=== PATIENT | male | born 1965 | race Caucasian/White ===

== ENCOUNTER 2020-04-01 10:49 | Inpatient (IN) | payer SELFPAY ==
[2020-04-01] MEDS ORDERED: CLINDAMYCIN 900MG/D5W 900 MG/50 ML IVPB IV ONE (11:40)
[2020-04-01] MEDS ORDERED: NA CHLORIDE 0.9% 1,000 ML ONE ×3 (11:40→15:38)
[2020-04-01 12:19] LABS: Absolute Lymphocytes (CBC) 1.1 K/uL (0.7-4.9); Basophils % 0.6 % (0-1.3); Hematocrit 43.6 % (39.6-49.0); Lymphocytes % 10.4 % (15.3-44.8); MPV 8.6 fL (7.6-11.3); RBC Red Blood Cell Count 4.55 M/uL (4.33-5.43)
[2020-04-01] MEDS ORDERED: ONDANSETRON 4 MG/2 ML VIAL ONE (12:30)
[2020-04-01] MEDS ORDERED: MORPHINE 4 MG/ML SYR ONE ×2 (12:30→13:51)
[2020-04-01 12:34] LABS: ALT/SGPT 22 U/L (12-78); AST/SGOT 13 U/L (15-37); Albumin 2.4 g/dL (3.4-5.0); Alkaline Phosphatase 112 U/L (45-117); BUN Blood Urea Nitrogen 17 mg/dL (7-18); Bicarbonate 27 mmol/L (21-32); Bilirubin Total 0.3 mg/dL (0.2-1.0); Potassium 4.7 mmol/L (3.5-5.1); Protein, Total 6.6 g/dL (6.4-8.2); Sodium Level 130 mmol/L (136-145)
[2020-04-01 12:36] LABS: Glucose Level 528 mg/dL (74-106)
[2020-04-01] MEDS ORDERED: INSULIN -REGULAR HUMAN 50 UNIT/0.5 ML ML ONE (13:02)
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
--- NOTE | 2020-04-01 13:17 | ER ---
Nurse's Notes [facility] Name: Henri Cool Age: 54 yrs Sex: Male : 1965 Arrival Date: 04/01/2020 Time: 10:52 Bed 5 Private MD: Diagnosis: Left arm cellulitis;Hyperglycemia Presentation: 04/01 10:59 Chief complaint: Patient states: Left hand redness, swelling, hot for 3 days. ll1 Coronavirus screen: Client denies travel out of the [place] in the last 14 days. At this time, the client does not indicate any symptoms associated with coronavirus-19. Ebola Screen: Patient denies travel to an Ebola-affected area in the 21 days before illness onset. Initial Sepsis Screen: Does the patient meet any 2 criteria? No. Patient's initial sepsis screen is negative. Does the patient have a suspected source of infection? Yes: Skin breakdown/wound. Risk Assessment: Do you want to hurt yourself or someone else? Patient reports no desire to harm self or others. Onset of symptoms was March 30, 2020. 10:59 Method Of Arrival: Ambulatory [facility] 10:59 Acuity: ANNA 2 ll1 Historical: - Allergies: 11:01 No Known Allergies; ll1 - PMHx: 11:01 Diabetes - IDDM; ll1 - PSHx: 11:01 neck sx, elbow sx, hip/leg sx; ll1 - Immunization history:: Flu vaccine is up to date. - Social history:: Smoking status: Patient denies any tobacco usage or history of. Screenin:40 Abuse screen: Denies threats or abuse. Nutritional screening: No deficits noted. vg1 Tuberculosis screening: No symptoms or risk factors identified. Fall Risk Total Wilkins Fall Scale indicates No Risk (0-24 pts). Assessment: 11:40 General: Appears in no apparent distress. well groomed, Behavior is anxious. Pain: vg1 Complains of pain in left hand. Neuro: Level of Consciousness is awake, alert, obeys commands, Oriented to person, place, time, situation. Cardiovascular: Patient's skin is warm and dry. Respiratory: Airway is patent Respiratory effort is even, unlabored, Respiratory pattern is regular, symmetrical. GI: No signs and/or symptoms were reported involving the gastrointestinal system. : No signs and/or symptoms were reported regarding the genitourinary system. EENT: No signs and/or symptoms were reported regarding the EENT system. Derm: Skin is pink, warm \T\ dry. Left hand redness and swelling, and warm to touch. Musculoskeletal: No signs and/or symptoms reported regarding the musculoskeletal system. 12:20 Reassessment: Patient in bed laying down. States is feeling anxious/nervous. Light vg1 turned off, bed low, call light at side. 13:27 Reassessment: Patient and/or family updated on plan of care and expected duration. Pain vg1 level reassessed. Patient is alert, oriented x 3, equal unlabored respirations, skin warm/dry/pink. Patient states pain level is 8/10. Laying down in bed resting, call light at side, family at bedside. 13:41 Reassessment: Pt c/o pain 8/10. Dr. Lockett notified, repeat morphine administered as hb ordered. VSS. Admission ordered, awaiting room assignment at this time. remains at bedside. 14:21 Reassessment: Patient appears in no apparent distress at this time. No changes from vg1 previously documented assessment. Patient and/or family updated on plan of care and expected duration. Pain level reassessed. Patient is alert, oriented x 3, equal unlabored respirations, skin warm/dry/pink. Patient states pain is still 8/10. Patient taken to Med/Surg via wheelchair by Ellen Barriga. Vital Signs: 10:59 BP 132 / 81; Pulse 89; Resp 17; Temp 98.2; Pulse Ox 100% ; Weight 65.77 kg; Height 5 ll1 ft. 5 in. (165.10 cm); Pain 10/10; 11:45 BP 122 / 84; Pulse 84; Resp 16; Pulse Ox 98% on R/A; Pain 10/10; vg1 12:15 BP 123 / 87; Pulse 78; Resp 14; Pulse Ox 100% on R/A; Pain 10/10; vg1 12:30 BP 120 / 83; Pulse 82; Resp 12; Pulse Ox 99% on R/A; vg1 13:39 BP 126 / 90; Pulse 74; Resp 12; Pulse Ox 100% on R/A; Pain 8/10; vg1 13:45 BP 135 / 89; Pulse 76; Resp 12; Pulse Ox 100% on R/A; Pain 8/10; vg1 14:00 BP 111 / 89; Pulse 74; Resp 14; Pulse Ox 98% on R/A; Pain 8/10; vg1 10:59 Body Mass Index 24.13 (65.77 kg, 165.10 cm) ll1 ED Course: 10:52 Patient arrived in ED. mr 10:52 Min Lockett MD is Attending Physician. ps1 11:01 Triage completed. ll1 11:02 Arm band placed on Patient placed in an exam room, on a stretcher. ll1 11:24 Chichi Abdullahi, RN is Primary Nurse. hb 11:25 Brittney Angeles, RN is Primary Nurse. vg1 11:38 Radiology exam delayed due to IV insertion attempt and/or patient not having bq appropriate IV at this time. 11:43 Inserted saline lock: 20 gauge in right antecubital area, using aseptic technique. vg1 Blood collected. 12:32 Patient has correct armband on for positive identification. Bed in low position. Call vg1 light in reach. Adult w/ patient. Pulse ox on. NIBP on. Door closed. Pillow given. 12:35 Procalcitonin Sent. vg1 12:35 Blood Culture Adult (2) Sent. vg1 12:35 CMP Sent. vg1 12:36 Hemoglobin A1c Sent. vg1 12:46 Patient moved to [place] via wheelchair. vg1 12:59 Forearm Left W Con In Process Unspecified. EDMS 13:10 Forearm Left W Con In Process Unspecified. EDMS 13:10 Patient moved back from [place]. vg1 13:16 Otto Ivey MD is Hospitalizing Provider. ps1 14:09 No provider procedures requiring assistance completed. Patient admitted, IV remains in sv place. intact. Administered Medications: 12:12 Drug: NS 0.9% (30 ml/kg) 30 ml/kg Route: IV; Rate: bolus; Site: right antecubital; vg1 13:30 Follow up: Response: No adverse reaction vg1 12:25 Drug: Clindamycin 900 mg Route: IVPB; Infused Over: 30 mins; Site: right antecubital; vg1 13:00 Follow up: IV Status: Completed infusion; IV Intake: 50ml vg1 13:31 Follow up: Response: No adverse reaction vg1 12:25 Drug: morphine 4 mg {Note: RASS 1.} Route: IVP; Site: right antecubital; vg1 13:30 Follow up: Response: No adverse reaction; RASS: Alert and Calm (0) vg1 12:25 Drug: Zofran (Ondansetron) 4 mg Route: IVP; Site: right antecubital; vg1 13:30 Follow up: Response: No adverse reaction; Nausea is decreased vg1 13:15 Drug: Insulin Regular Human 10 units {Co-Signature: hb (Chichi Abdullahi RN).} Route: vg1 Sub-Q; Site: left upper arm; 13:41 Drug: morphine 4 mg Route: IVP; Site: right antecubital; hb 14:21 Follow up: Response: No adverse reaction vg1 Intake: 13:00 IV: 50ml; Total: 50ml. vg1 Outcome: 13:17 Decision to Hospitalize by Provider. ps1 14:09 Admitted to Med/surg room 208, with chart, Report called to Carmenza MAHMOOD sv 14:09 Condition: stable 14:09 Instructed on the need for admit. 14:15 Patient left the ED. sv Signatures: Dispatcher [employer] EDMS Ashley Bhatti RN ELA sv Jim, Larissa mr Aarondwayne, Chichi Camacho RN RN hb Min Lockett MD MD ps1 Brittney Angeles RN RN vg1 Ai Green RN RN ll1 Chichi Abdullahi RN hb
[2020-04-01] MEDS ORDERED: ONDANSETRON 4 MG/2 ML VIAL IV PRN (13:18)
[2020-04-01] MEDS ORDERED: ACETAMINOPHEN 500 MG TAB PO PRN (13:18)
--- NOTE | 2020-04-01 13:21 | RAD REPORT ---
EXAM DESCRIPTION: CT - Forearm Left W Con - 04/01/2020 1:10 pm CLINICAL HISTORY: swellingpain of the hand, wrist and forearm, foreign body history COMPARISON: No comparisons TECHNIQUE: Axial 5 millimeter thick images were obtained of the hand, wrist and forearm of the left upper extremity. Imaging was obtained following administration of nonionic IV contrast. Sagittal and coronal reformatted images were generated and reviewed. The CT scan was performed using dose optimization techniques as appropriate to a performed exam incl uding one or more of the following: Automated exposure control, adjustment of the mA and/or kV accord ing to patient size (this includes techniques or standardized protocols for targeted exams where dose is matched to indication/reason for exam) and use of iterative reconstruction technique. FINDINGS: There is no fracture or acute bone process identifiable. No lytic or destructive bone proc ess identifiable. No joint effusions are identifiable on the examination. No periarticular enhancemen t or abnormal periarticular soft tissue swelling seen. Skeletal musculature shows no intramuscular he matoma, mass or edema. No extravasation of contrast. No abscess or drainable fluid collection. There is no air in the soft t issues. No foreign body identifiable. Skin thickening and edema changes are present over the dorsum of the hand, wrist and distal forearm. There is edema and inflammatory stranding in the subcutaneous fatty tissues of the hand, wrist and fo rearm. This is primarily dorsum of the hand and wrist. IMPRESSION: Edematous/inflammatory stranding is seen in the subcutaneous fatty tissues of the hand, wrist and forearm. Findings are most pronounced at the dorsum of the hand and wrist. No air in the soft tissues, no drainable fluid collection and no foreign body is identifiable. No joint effusion or periarticular soft tissue edema or enhancement.
[2020-04-01 14:44] VITALS: BMI 24.1
[2020-04-01] MEDS: VANCOMYCIN/NS 1 gm 1 GM/250 ML BAG IVPB SCH (14:45)
[2020-04-01] MEDS: Levofloxacin 750mg IV 750 MG/150 ML BAG IV SCH (15:27)
[2020-04-01] MEDS: NA CHLORIDE 0.9% 1,000 ML IV SCH (15:28)
[2020-04-01] MEDS ORDERED: Levofloxacin 750mg IV 750 MG/150 ML BAG IV ONE (15:39)
--- NOTE | 2020-04-01 16:02 | P.HP ---
Certification for Inpatient Patient admitted to: Inpatient With expected LOS: >2 Midnights Patient will require the following post-hospital care: None Practitioner: I am a practitioner with admitting privileges, knowledge of patient current condition, hospital course, and medical plan of care. Services: Services provided to patient in accordance with Admission requirements found in Title 42 Section 412.3 of the Code of Federal Regulations Patient History Date of Service: 04/01/20 Reason for admission: Left digit and left hand cellulitis along with a left forearm cellulitis History of Present Illness: Patient is a 54-year-old gentleman who presents to the hospital with swelling of the left hand and forearm. He said he has been having a lot of tenderness and pain. He was helping his girlfriend with making the beds at a hotel, and he believes he may have scraped his hand on the wood frame of the bed. He has also has some insect bites at [place] as the mosquitos are really bad. [place] He also has poorly controlled diabetes. He is on Lantus twice daily and then he takes a short-acting before his meals. He has significant erythema and edema of the left fingers, hand, and forearm. He has a lot of tenderness as well. At this time, he will be admitted to the hospital for further evaluation. Spoke with hand surgery and they will see him in the morning as well. Allergies No Known Allergies Allergy (Verified 04/01/20 14:25) Home Medications: Insulin Glargine,Hum.rec.anlog [Lantus Solostar] 25 units SQ BID 04/01/20 Insulin Lispro [Humalog*] 10 units SQ TID 04/01/20 - Past Medical/Surgical History Has patient received pneumonia vaccine in the past: No Diabetic: Yes -: Diabetes- IDDM -: Neck Sx -: Right Hip Sx - Family History Mother Medical History: Diabetes - Social History Smoking Status: Never smoker Alcohol use: No CD- Drugs: No Caffeine use: Yes Place of Residence: Home Review of Systems 10-point ROS is otherwise unremarkable Physical Examination - Vital Signs Temperature: 98.2 F Blood Pressure: 126/90 Pulse: 74 Respirations: 12 Pulse Ox (%): 95 - Physical Exam General: Alert, In no apparent distress, Oriented x3 HEENT: Atraumatic, PERRLA, Mucous membr. moist/pink, EOMI, Sclerae nonicteric Neck: Supple, 2+ carotid pulse no bruit, No LAD, Without JVD or thyroid abnormality Respiratory: Clear to auscultation bilaterally, Normal air movement Cardiovascular: Regular rate/rhythm, Normal S1 S2, No murmurs Gastrointestinal: Normal bowel sounds, Soft and benign, Non-distended, No tenderness Musculoskeletal: Swelling, Erythema, Tenderness, Warmth, Other (Swelling extended from the fingers to the hands to the forearm) Integumentary: Tenderness/swelling, Erythema, Warmth Neurological: Normal gait, Normal speech, Normal tone, Sensation intact, Cranial nerves 3-12 intact, Normal affect, Abnormal strength (Left hand is abnormal; otherwise everything is unremarkable) Lymphatics: No axilla or inguinal lymphadenopathy - Studies Laboratory Data (last 24 hrs) 04/01/20 11:45: Sodium 130 L, Potassium 4.7, BUN 17, Creatinine 0.87, Glucose 528 H*, Total Bilirubin 0.3, AST 13 L, ALT 22, Alkaline Phosphatase 112 04/01/20 11:45: WBC 10.9, Hgb 14.3, Hct 43.6, Plt Count 251 Assessment & Plan - Problems (Diagnosis) (1) Cellulitis of multiple sites of left hand and fingers Current Visit: Yes Status: Acute (2) Cellulitis of left forearm Current Visit: Yes Status: Acute (3) Poorly controlled diabetes mellitus Current Visit: Yes Status: Acute - Plan 1. Continue with IV antibiotic 2. Monitor blood sugars closely 3. Hand surgery consultation; to see patient in the morning 4. Gentle IV hydration 5. Monitor CBC 6. Check hemoglobin A1c in the morning 7. Pain control 8. GI and DVT prophylaxis Discharge Plan: Home Plan to discharge in: Greater than 2 days - Advance Directives Does patient have a Living Will: No Does patient have a Durable POA for Healthcare: No - Code Status/Comfort Care Code Status Assessed: Yes Code Status: Full Code Critical Care: No Time Spent Managing PTS Care (In Minutes): 45
[2020-04-01] MEDS: HYDROMORPHONE HCL 1 MG/ML INJ IV PRN ×2 (16:32→21:23)
[2020-04-01] MEDS ORDERED: HYDROMORPHONE HCL 1 MG/ML INJ ONE (16:40)
[2020-04-01] MEDS ORDERED: D50W 25 GM/50 ML SYRINGE IV PRN (17:02)
[2020-04-01] MEDS ORDERED: GLUCAGON 1 MG/VIAL IM PRN (17:02)
[2020-04-01] MEDS ORDERED: INSULIN GLARGINE 100 UNITS/ML SQ ONE ×2 (17:25→18:00)
[2020-04-02] MEDS: VANCOMYCIN/NS 1 gm 1 GM/250 ML BAG IVPB SCH ×2 (01:27→14:11)
[2020-04-02] MEDS: HYDROMORPHONE HCL 1 MG/ML INJ IV PRN ×2 (01:32→05:07)
[2020-04-02] MEDS: NA CHLORIDE 0.9% 1,000 ML IV SCH ×2 (03:20→16:00)
[2020-04-02 06:18] LABS: Absolute Lymphocytes (CBC) 1.5 K/uL (0.7-4.9); Basophils % 0.4 % (0-1.3); Hematocrit 41.5 % (39.6-49.0); Lymphocytes % 9.9 % (15.3-44.8); MPV 7.9 fL (7.6-11.3); RBC Red Blood Cell Count 4.43 M/uL (4.33-5.43)
[2020-04-02 06:24] LABS: BUN Blood Urea Nitrogen 11 mg/dL (7-18); Bicarbonate 27 mmol/L (21-32); Glucose Level 194 mg/dL (74-106); Sodium Level 130 mmol/L (136-145)
[2020-04-02] MEDS ORDERED: TRAMADOL HCL 50 MG TAB PO PRN (07:29)
--- NOTE | 2020-04-02 07:31 | P.PN ---
Subjective Date of Service: 04/02/20 Primary Care Provider: From [place] Chief Complaint: Left digit and left hand cellulitis along with a left forearm cellulitis Subjective: Other (Pain better controlled.) Physical Examination - Vital Signs Temperature: 98.5 F Blood Pressure: 133/92 Pulse: 84 Respirations: 16 Pulse Ox (%): 97 - Physical Exam General: Alert, In no apparent distress, Oriented x3, Cooperative HEENT: Atraumatic Neck: Supple Respiratory: Clear to auscultation bilaterally, Normal air movement Cardiovascular: Normal pulses, Regular rate/rhythm Gastrointestinal: Normal bowel sounds, No masses, No rebound, No guarding Musculoskeletal: Other (Pain to the left hand noted) Integumentary: Other (Significant swelling to the left hand. Bullous formations noted to the dorsal aspect of the hand. Significant erythema noted to the hand and wrist region.) Neurological: Normal speech, Normal strength at 5/5 x4 extr, Normal tone, Other (Not able to completely flex fingers and wrists.) - Studies Laboratory Data (last 24 hrs) 04/01/20 11:45: Sodium 130 L, Potassium 4.7, BUN 17, Creatinine 0.87, Glucose 528 H*, Total Bilirubin 0.3, AST 13 L, ALT 22, Alkaline Phosphatase 112 04/01/20 11:45: WBC 10.9, Hgb 14.3, Hct 43.6, Plt Count 251 Medications List Reviewed: Yes Assessment & Plan Discharge Plan: Home Plan to discharge in: 72 Hours Physician Review Additional Text: Impression: Cellulitis of left hand, wrist and forearm Diabetes mellitus type 2 uncontrolled with hyperglycemia Plan: Cellulitis of left hand, wrist and forearm: Continue with vancomycin and levaquin IV. Patient is NPO. Await Dr. Magana's assessment. Diabetes mellitus type 2 uncontrolled with hyperglycemia: Continue with accuchecks. Will adjust Lantus. A1c was elevated. Needs better control. Time Spent Managing Pts Care (In Minutes): 55
[2020-04-02] MEDS: HYDROCODONE/APAP 7.5/325 MG TAB PO PRN ×2 (08:03→20:19)
[2020-04-02] MEDS ORDERED: HYDROCODONE/APAP 7.5/325 MG TAB ONE (08:13)
[2020-04-02] MEDS ORDERED: NS 0.9% VIAL 10 ML ONE (09:52)
[2020-04-02] MEDS ORDERED: LIDOCAINE 2% MPF 5 ML VIAL ONE ×2 (09:52→10:58)
[2020-04-02] MEDS ORDERED: ROPLVACAINE HCL 40 ML ONE (09:53)
[2020-04-02] MEDS ORDERED: MIDAZOLAM HCL 2 MG/2 ML INJ ONE (09:53)
[2020-04-02] MEDS ORDERED: FENTANYL CITR 100 MCG/2 ML ONE (09:53)
[2020-04-02] MEDS ORDERED: dexAMETHasone 4 MG/ML VIAL ONE (09:56)
[2020-04-02] MEDS ORDERED: NA CHLORIDE 0.9% 1,000 ML ONE (10:07)
[2020-04-02] MEDS ORDERED: propofoL 200 MG/20 ML VIAL IV ONE (10:16)
[2020-04-02] MEDS ORDERED: Levofloxacin 750mg IV 750 MG/150 ML BAG IV ONE (10:44)
[2020-04-02] MEDS ORDERED: CODEINE 30MG/APAP 300MG TAB PO PRN (11:42)
[2020-04-02] MEDS ORDERED: MEPERIDINE HCL 50 MG/ML IM PRN (11:43)
--- NOTE | 2020-04-02 12:30 | OP ---
Surgeon: Jarad Magana MD Preoperative Diagnosis: Infected left hand. Postoperative Diagnosis: Infected left hand. Procedure: Debridement of skin and subcu tissue, incision and drainage of abscess on the dorsum of the hand. Anesthesia: supraclavicular block. Description Of Procedure: Without satisfactory block, the left arm was prepped with Betadine scrub, Betadine paint, dry sterile drapes applied in usual manner. Arm was elevated. Tourniquet was inflated to 250 mmHg. Hand was placed on a roll lock table. The patient had 2 focal areas, 1 over the fourth fifth metacarpal and then 1 over the third metacarpal dorsally. A curvilinear incision was made over the fourth fifth metacarpal area and watery yellow white fluid was encountered. The tracts were opened extending all the way toward the metacarpal head of the little finger toward the wrist proximally. There was a bridge extending toward the thumb metacarpal. Another incision was made over the thumb metacarpal curvilinear and also the 2 wounds were communicated. A Shawna drain was placed between them. After debridement, forceps, scissors, and curetting. Then the wound was jet lavage irrigated with 3 L of dilute Betadine solution. Tourniquet was released. Electrocautery was used for hemostasis. Wound was packed with Betadine-soaked 2 inch Eddie, Kerlix and fluffs. The patient tolerated procedure well and returned to Recovery. SHIVA Voice ID: [id number] Report ID: [id number] MAYRA
[2020-04-02] MEDS: Levofloxacin 750mg IV 750 MG/150 ML BAG IV SCH (13:01)
[2020-04-02] MEDS: INSULIN -REGULAR HUMAN 50 UNIT/0.5 ML ML SQ SCH ×2 (15:59→20:19)
[2020-04-02] MEDS ORDERED: INSULIN GLARGINE 100 UNITS/ML SQ ONE (17:03)
[2020-04-02] MEDS ORDERED: INSULIN GLARGINE 100 UNITS/ML SQ SCH (21:00)
[2020-04-03] MEDS: NA CHLORIDE 0.9% 1,000 ML IV SCH ×3 (00:51→21:53)
[2020-04-03] MEDS: HYDROMORPHONE HCL 1 MG/ML INJ IV PRN (00:52)
[2020-04-03] MEDS: VANCOMYCIN/NS 1 gm 1 GM/250 ML BAG IVPB SCH (02:06)
[2020-04-03 04:31] LABS: Absolute Lymphocytes (CBC) 1.3 K/uL (0.7-4.9); Basophils % 0.3 % (0-1.3); Hematocrit 40.7 % (39.6-49.0); Lymphocytes % 9.3 % (15.3-44.8); MPV 8.5 fL (7.6-11.3); RBC Red Blood Cell Count 4.34 M/uL (4.33-5.43)
[2020-04-03 04:50] LABS: Magnesium 2.1 mg/dL (1.8-2.4); Potassium 4.5 mmol/L (3.5-5.1)
--- NOTE | 2020-04-03 07:28 | P.PN ---
Subjective Date of Service: 04/03/20 Primary Care Provider: From [place] Chief Complaint: Left digit and left hand cellulitis along with a left forearm cellulitis Subjective: Other (Patient had surgery yesterday. Pain improved.) Physical Examination - Vital Signs Temperature: 97.6 F Blood Pressure: 104/56 Pulse: 86 Respirations: 18 Pulse Ox (%): 97 - Physical Exam General: Alert, In no apparent distress, Oriented x3, Cooperative HEENT: Atraumatic Neck: Supple Respiratory: Clear to auscultation bilaterally, Normal air movement Cardiovascular: Normal pulses, Regular rate/rhythm Gastrointestinal: No guarding Integumentary: Other (Left hand bandaged. Less swelling noted to the fingers.) Neurological: Normal speech, Normal strength at 5/5 x4 extr, Normal tone, Normal affect - Studies Medications List Reviewed: Yes Assessment & Plan Discharge Plan: Home Plan to discharge in: Greater than 2 days Physician Review Additional Text: Impression: Cellulitis/abscess of left hand, wrist and forearm status post debridement/incision/drainage of abscess of the dorsum of the hand Diabetes mellitus type 2, insulin-dependent with hyperglycemia Hyponatremia Plan: Cellulitis/abscess of left hand, wrist and forearm status post debridement/incision/drainage of abscess of the dorsum of the hand: Patient had surgery yesterday. Debridement done. Packing in place. Continue IV vancomycin and Levaquin. Plastic surgery plans to take patient back to surgery again tomorrow. Will consult infectious disease to further evaluate and await recommendation. Blood, wound cultures obtained. Will provide medication for pain will continue to monitor closely. Anticipate discharge likely in the next 3-4 days. Will discuss further with plastic surgery. Diabetes mellitus type 2 insulin-dependent with hyperglycemia: A1c greater than 11. Will increase Lantus to 20 units subcu twice daily. Will increase sliding scale. Continue to get diabetes better controlled. Will continue to monitor and adjust medication appropriately. Hyponatremia: Continue IV fluids. Will monitor and adjust appropriately. Time Spent Managing Pts Care (In Minutes): 55
[2020-04-03] MEDS: INSULIN -REGULAR HUMAN 50 UNIT/0.5 ML ML SQ SCH ×4 (07:55→20:03)
[2020-04-03] MEDS: INSULIN GLARGINE 100 UNITS/ML SQ SCH ×2 (07:56→20:03)
[2020-04-03] MEDS ORDERED: INSULIN GLARGINE 100 UNITS/ML SQ SCH (09:00)
--- NOTE | 2020-04-03 09:46 | PN ---
The patient's dressing changed. The flaps are viable. The wound is clean. He is for surgery tomorr ow, n.p.o. after midnight, debridement and partial closure. AUSTIN/LINDSAY Voice ID: [id number] Report ID: [id number]
[2020-04-03] MEDS: HYDROCODONE/APAP 7.5/325 MG TAB PO PRN ×3 (11:48→21:57)
[2020-04-03] MEDS: VANCOMYCIN 1.25 GM in NA CHLORIDE 0.9% 250 ML IVPB SCH (13:00)
[2020-04-03] MEDS: Levofloxacin 750mg IV 750 MG/150 ML BAG IV SCH (13:00)
[2020-04-03] MEDS: HYDROMORPHONE HCL 0.5 MG/0.5 ML INJ IV PRN ×2 (15:15→20:04)
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
--- NOTE | 2020-04-03 19:49 | CON ---
History Of Present Illness: The patient is a 54-year-old male coming in with left hand infection and cellulitis. The patient was taken to the OR to open wounds. Infection was debrided. The patient i s currently on IV antibiotic. Does not recall what happened to his hand it could be insect bite vers us trauma as patient was doing some cleaning work at outside. Denies any other problems at this time . Has history of diabetes mellitus. Social History: Nonsmoker, nondrinker. Family History: Noncontributory. Past Medical History: As per HPI. Medications: Levaquin and vancomycin. See MAR for other medications. Allergies: NO KNOWN DRUG ALLERGIES. Review of Systems: A 10-point review was performed. Physical Examination: General: This is a 54-year-old male, lying in bed, family by the bedside, not in any acute cardiopul monary distress. Vital signs: Temperature 97.8, pulse 87, respiration 18, blood pressure 134/74. HEENT: Unremarkable. Neck: Supple. Lungs: Clear to auscultation. Heart: S1, S2. Regular. Abdomen: Soft, nontender. Bowel sounds present. Extremity: Left hand under surgical dressing. Laboratory Data: Shows WBC 14.2, hemoglobin 14, platelets are 300. Chemistry shows sodium 132, pota ssium 4.5, chloride 97, bicarb 28, BUN 27, creatinine 0.9, glucose is 485. Micro data; blood culture s are negative. Wound cultures growing Staph epi. Staph coag-negative. Assessment And Plan: Left hand injury with infected wound, possible staph infection currently being well covered with vancomycin and Levaquin. Keep hand elevated. Recommend to apply wound dressing as per surgical team. Continue antibiotic for couple of weeks, can be switched to oral on discharge. Follow up with primary care doctor. No new recommendation at this point. We will follow the patient as needed. NF/MODL Voice ID: [id number] Report ID: [id number]
[2020-04-04] MEDS: HYDROMORPHONE HCL 0.5 MG/0.5 ML INJ IV PRN ×2 (00:39→05:55)
[2020-04-04] MEDS: HYDROCODONE/APAP 7.5/325 MG TAB PO PRN ×2 (01:59→09:30)
[2020-04-04] MEDS: VANCOMYCIN 1.25 GM in NA CHLORIDE 0.9% 250 ML IVPB SCH ×2 (02:02→14:52)
[2020-04-04 04:07] LABS: Absolute Lymphocytes (CBC) 2.5 K/uL (0.7-4.9); Basophils % 0.6 % (0-1.3); Hematocrit 39.5 % (39.6-49.0); Lymphocytes % 25.3 % (15.3-44.8); MPV 7.6 fL (7.6-11.3); RBC Red Blood Cell Count 4.23 M/uL (4.33-5.43)
[2020-04-04 04:18] LABS: BUN Blood Urea Nitrogen 21 mg/dL (7-18); Bicarbonate 31 mmol/L (21-32); Glucose Level 244 mg/dL (74-106); Magnesium 1.9 mg/dL (1.8-2.4); Sodium Level 136 mmol/L (136-145)
[2020-04-04] MEDS: INSULIN -REGULAR HUMAN 50 UNIT/0.5 ML ML SQ SCH ×5 (07:30→20:28)
--- NOTE | 2020-04-04 07:32 | P.PN ---
Subjective Date of Service: 04/04/20 Primary Care Provider: From [place] Chief Complaint: Left digit and left hand cellulitis along with a left forearm cellulitis Subjective: Doing well (Pain better controlled with adjustment in medication.) Physical Examination - Vital Signs Temperature: 97.5 F Blood Pressure: 131/79 Pulse: 76 Respirations: 18 Pulse Ox (%): 98 - Physical Exam General: Alert, In no apparent distress, Oriented x3, Cooperative HEENT: Atraumatic Neck: Supple Respiratory: Clear to auscultation bilaterally, Normal air movement Cardiovascular: Normal pulses, Regular rate/rhythm Integumentary: Other (Left hand bandaged. Swelling to the fingers improved.) Neurological: Normal speech, Normal strength at 5/5 x4 extr, Normal tone, Normal affect - Studies Medications List Reviewed: Yes Assessment & Plan Discharge Plan: Home Plan to discharge in: 72 Hours Physician Review Additional Text: Impression: Cellulitis/abscess of left hand, wrist and forearm status post debridement/incision/drainage of abscess of the dorsum of the hand Diabetes mellitus type 2, insulin-dependent with hyperglycemia Hyponatremia Plan: Cellulitis/abscess of left hand, wrist and forearm status post debridement/incision/drainage of abscess of the dorsum of the hand: Patient currently NPO today. Will have debridement again today with plastic surgery. Continue IV vancomycin and Levaquin. Will review case with infectious disease. This is likely staph infection. Infectious Disease reported patient can possibly be sent home on oral medication at discharge. Plastic surgery said yesterday patient may require skin graft. Continue with plastic surgery recommendations. Pain medications adjusted yesterday with better control. Anticipate discharge in the next 2-3 days pending plastic surgery recommendations. Diabetes mellitus type 2 insulin-dependent with hyperglycemia: A1c greater than 11. Lantus adjusted. Will continue to monitor and adjust appropriately for better control. Hyponatremia: Improved. Will discontinue IV fluids. Will monitor and adjust appropriately. Time Spent Managing Pts Care (In Minutes): 55
[2020-04-04] MEDS: INSULIN GLARGINE 100 UNITS/ML SQ SCH ×2 (08:29→20:28)
[2020-04-04] MEDS ORDERED: FENTANYL CITR 100 MCG/2 ML ONE (11:04)
[2020-04-04] MEDS ORDERED: LIDOCAINE 2% MPF 5 ML VIAL ONE ×2 (11:04→12:06)
[2020-04-04] MEDS ORDERED: NS 0.9% VIAL 10 ML ONE (11:04)
[2020-04-04] MEDS ORDERED: MIDAZOLAM HCL 2 MG/2 ML INJ ONE (11:05)
[2020-04-04] MEDS ORDERED: ROPLVACAINE HCL 40 ML ONE (11:05)
[2020-04-04] MEDS ORDERED: dexAMETHasone 4 MG/ML VIAL ONE (11:05)
[2020-04-04] MEDS ORDERED: propofoL 200 MG/20 ML VIAL IV ONE (12:06)
--- NOTE | 2020-04-04 14:04 | OP ---
Surgeon: Jarad Magana MD Preoperative Diagnosis: Open wounds of the left hand. Postoperative Diagnosis: Open wounds of the left hand. Procedure: Debridement of skin and subcutaneous tissue. Anesthesia: General. Description Of Procedure: After satisfactory block, the left hand was prepped with Betadine scrub, B etadine paint, dry sterile drapes applied usual manner. Scalpel forceps and curette were used to cecil ride skin and subcutaneous tissue as needed. A curette was used to scrape the wound and then scrubbe d with Betadine scrub brush and jet lavage irrigated with 3 L of dilute Betadine solution. The patie nt had the wound then packed with Betadine-soaked 2 inch Eddie. Kerlix was applied. The patient rayo erated the procedure well and returned to Recovery. AUSTIN/LINDSAY Voice ID: [id number] Report ID: [id number]
[2020-04-05] MEDS: HYDROCODONE/APAP 7.5/325 MG TAB PO PRN ×3 (00:27→11:21)
[2020-04-05] MEDS: VANCOMYCIN 1.5 GM in NA CHLORIDE 0.9% 500 ML IVPB SCH ×2 (03:44→15:30)
[2020-04-05 04:26] LABS: Absolute Lymphocytes (CBC) 1.5 K/uL (0.7-4.9); Basophils % 0.8 % (0-1.3); Hematocrit 40.5 % (39.6-49.0); Lymphocytes % 13.4 % (15.3-44.8); MPV 7.9 fL (7.6-11.3); RBC Red Blood Cell Count 4.36 M/uL (4.33-5.43)
[2020-04-05 04:37] LABS: BUN Blood Urea Nitrogen 23 mg/dL (7-18); Bicarbonate 30 mmol/L (21-32); Glucose Level 256 mg/dL (74-106); Magnesium 2.3 mg/dL (1.8-2.4); Potassium 4.1 mmol/L (3.5-5.1); Sodium Level 134 mmol/L (136-145)
[2020-04-05] MEDS ORDERED: INSULIN GLARGINE 100 UNITS/ML SQ SCH ×2 (09:00→21:00)
[2020-04-05] MEDS: HYDROMORPHONE HCL 0.5 MG/0.5 ML INJ IV PRN ×4 (09:06→23:31)
[2020-04-05] MEDS: INSULIN -REGULAR HUMAN 50 UNIT/0.5 ML ML SQ SCH ×4 (09:07→20:55)
--- NOTE | 2020-04-05 13:22 | P.PN ---
Subjective Date of Service: 04/05/20 Primary Care Provider: From [place] Chief Complaint: Left digit and left hand cellulitis along with a left forearm cellulitis Subjective: Improving, Doing well Physical Examination - Vital Signs Temperature: 97.3 F Blood Pressure: 147/91 Pulse: 84 Respirations: 18 Pulse Ox (%): 97 - Physical Exam General: Alert, In no apparent distress, Oriented x3, Cooperative Neck: Supple Respiratory: Clear to auscultation bilaterally, Normal air movement Cardiovascular: Normal pulses, Regular rate/rhythm Gastrointestinal: Normal bowel sounds, No masses, No rebound, No guarding Integumentary: Other (Left hand shows improvement in the swelling. Bandage in place.) - Studies Medications List Reviewed: Yes Assessment & Plan Discharge Plan: Home Plan to discharge in: Greater than 2 days Physician Review Additional Text: Impression: Cellulitis/abscess of left hand, wrist and forearm status post debridement/incision/drainage of abscess of the dorsum of the hand, wound culture positive for methicillin-resistant Staph aureus Diabetes mellitus type 2, insulin-dependent with hyperglycemia Hyponatremia Plan: Cellulitis/abscess of left hand, wrist and forearm status post debridement/incision/drainage of abscess of the dorsum of the hand, wound culture positive for methicillin-resistant Staph aureus: Patient had 2nd debridement yesterday. Patient doing well. Pain under control. Plastic surgery plans to take the patient back again to surgery on Thursday. Continue IV antibiotic therapy. Wound culture shows methicillin-resistant Staph aureus. Will discuss with infectious disease. Anticipate discharge likely on Thursday after likely closure. Diabetes mellitus type 2 insulin-dependent with hyperglycemia: A1c greater than 11. Continue to adjust Lantus for better diabetic control. Will continue to monitor and adjust appropriately for better control. Hyponatremia: Improved. Time Spent Managing Pts Care (In Minutes): 55
[2020-04-05] MEDS ORDERED: TRAMADOL HCL 50 MG TAB PO PRN (16:15)
[2020-04-05] MEDS: HYDROCODONE/APAP 10/325 TAB PO PRN ×2 (16:26→22:45)
[2020-04-05] MEDS: GABAPENTIN 100 MG CAP PO SCH ×2 (17:02→20:56)
[2020-04-06] MEDS ORDERED: HYDROMORPHONE HCL 1 MG/ML INJ IV ONE (00:35)
[2020-04-06] MEDS: VANCOMYCIN 1.5 GM in NA CHLORIDE 0.9% 500 ML IVPB SCH ×2 (03:35→15:02)
--- NOTE | 2020-04-06 05:40 | DS ---
He underwent dressing change today. His wound is open and improving Plan surgery on Thursday for debridement and closure. AUSTIN/LINDSAY Voice ID: [id number] Report ID: [id number] MTDD
[2020-04-06] MEDS: HYDROMORPHONE HCL 1 MG/ML INJ IV PRN ×4 (07:28→19:30)
[2020-04-06] MEDS: GABAPENTIN 300 MG CAP PO SCH ×2 (08:14→21:21)
[2020-04-06] MEDS: INSULIN -REGULAR HUMAN 50 UNIT/0.5 ML ML SQ SCH ×4 (08:15→21:22)
[2020-04-06] MEDS: INSULIN GLARGINE 100 UNITS/ML SQ SCH ×2 (08:15→21:21)
--- NOTE | 2020-04-06 09:21 | P.PN ---
Subjective Date of Service: 04/06/20 Primary Care Provider: From [place] Chief Complaint: Left digit and left hand cellulitis along with a left forearm cellulitis Subjective: Improving (Pain medication adjusted. Still with some pain especially with wound care changes.) Physical Examination - Vital Signs Temperature: 97 F Blood Pressure: 139/88 Pulse: 85 Respirations: 16 Pulse Ox (%): 96 - Physical Exam General: Alert, In no apparent distress, Oriented x3, Cooperative HEENT: Atraumatic Neck: Supple Respiratory: Clear to auscultation bilaterally, Normal air movement Cardiovascular: Normal pulses, Regular rate/rhythm Gastrointestinal: Normal bowel sounds, Soft and benign, Non-distended, No tenderness, No masses, No rebound, No guarding Integumentary: Other (Bandages in place. Left hand swelling significantly improved.) Neurological: Normal speech, Normal strength at 5/5 x4 extr, Normal tone, Normal affect - Studies Medications List Reviewed: Yes Assessment & Plan Discharge Plan: Home Plan to discharge in: Greater than 2 days Physician Review Additional Text: Impression: Cellulitis/abscess of left hand, wrist and forearm status post debridement/incision/drainage of abscess of the dorsum of the hand, wound culture positive for methicillin-resistant Staph aureus Diabetes mellitus type 2, insulin-dependent with hyperglycemia Hyponatremia Plan: Cellulitis/abscess of left hand, wrist and forearm status post debridement/incision/drainage of abscess of the dorsum of the hand, wound culture positive for methicillin-resistant Staph aureus: Patient had 2nd debridement 2 days ago. Patient has done well with wound care except for pain control. Medications adjusted yesterday. Will continue to adjust pain medication again today. Will increase Dilaudid. Will increase frequency for hydrocodone. Will increase gabapentin as the patient was using higher doses at home. Will start gabapentin 600 mg twice daily. Will consider increasing that medication if required. Will ask nurses to premedicate prior to wound care that is done twice daily. Plastic surgery plans to debride hand on Thursday. It is anticipated that he will have closure at that time. Will discuss with infectious disease about wound culture showing methicillin-resistant Staph aureus. Patient remains on IV vancomycin. I will turn the service over to the hospitalist team tomorrow. I will go over the plan of care with him. Diabetes mellitus type 2 insulin-dependent with hyperglycemia: A1c greater than 11. Continue to adjust Lantus for better diabetic control.Will continue to monitor and adjust appropriately for better control. Hyponatremia: Resolved. Time Spent Managing Pts Care (In Minutes): 55
[2020-04-06] MEDS: HYDROCODONE/APAP 10/325 TAB PO PRN ×2 (10:07→21:23)
--- NOTE | 2020-04-06 10:46 | DS ---
The patient's improving plan surgery next week. We will debride and close the wound. AUSTIN/LINDSAY Voice ID: [id number] Report ID: [id number] MTDD
[2020-04-06] MEDS: MELATONIN 3 MG TABLET PO SCH (21:20)
[2020-04-07] MEDS: VANCOMYCIN 1.5 GM in NA CHLORIDE 0.9% 500 ML IVPB SCH ×2 (03:43→15:15)
[2020-04-07] MEDS: HYDROMORPHONE HCL 1 MG/ML INJ IV PRN ×5 (04:44→22:20)
[2020-04-07] MEDS: HYDROCODONE/APAP 10/325 TAB PO PRN ×3 (06:39→20:39)
[2020-04-07] MEDS: INSULIN GLARGINE 100 UNITS/ML SQ SCH ×2 (08:00→20:40)
[2020-04-07] MEDS: GABAPENTIN 300 MG CAP PO SCH ×2 (08:00→20:40)
[2020-04-07] MEDS: INSULIN -REGULAR HUMAN 50 UNIT/0.5 ML ML SQ SCH ×4 (08:03→20:40)
--- NOTE | 2020-04-07 08:37 | P.PN ---
Subjective Date of Service: 04/07/20 (Hospital is) Primary Care Provider: From [place] Chief Complaint: Left digit and left hand cellulitis along with a left forearm cellulitis Subjective: Improving (Patient is improving still complaining of some discomfort in the left hand receiving IV antibiotic schedule for a wound closure on Thursday) Review of Systems Unremarkable Physical Examination - Vital Signs Temperature: 98.2 F Blood Pressure: 124/77 Pulse: 88 Respirations: 16 Pulse Ox (%): 97 - Physical Exam General: Alert, Oriented x3, Mild distress Neck: Supple Respiratory: Clear to auscultation bilaterally Cardiovascular: No edema, Regular rate/rhythm - Studies Microbiology Data (last 24 hrs): 04/01/20 12:10 Blood - Blood Aerobic Blood Culture - Final No growth in 5 days. 04/01/20 12:10 Blood - Blood Anaerobic Blood Culture - Final No growth in 5 days. 04/01/20 11:45 Blood - Blood Aerobic Blood Culture - Final No growth in 5 days. 04/01/20 11:45 Blood - Blood Anaerobic Blood Culture - Final No growth in 5 days. Medications List Reviewed: Yes Assessment & Plan - Problems (Diagnosis) (1) Cellulitis of left forearm Current Visit: Yes Status: Acute Plan: Patient admitted with cellulitis of the left forearm due to Mr schedule for a wound closure on Thursday/complaining of some on discomfort he is on pain medication needs a stool softener at doxycycline p.o. continue with vancomycin labs reviewed lactulose p.r.n. as a stool softener Lovenox for DVT prophylaxis Discharge Plan: Home Plan to discharge in: 72 Hours
[2020-04-07] MEDS: ENOXAPARIN 40 MG/0.4 ML SQ SCH (09:27)
[2020-04-07] MEDS: DOXYCYCLINE 100 MG CAP PO SCH ×2 (09:27→20:39)
[2020-04-07] MEDS: LACTULOSE 20 GM/30 ML UCUP PO PRN (13:34)
[2020-04-07] MEDS: MELATONIN 3 MG TABLET PO SCH (20:40)
[2020-04-08] MEDS: VANCOMYCIN 1.5 GM in NA CHLORIDE 0.9% 500 ML IVPB SCH ×2 (04:31→14:29)
[2020-04-08] MEDS: HYDROCODONE/APAP 10/325 TAB PO PRN ×3 (04:31→18:53)
[2020-04-08 05:47] LABS: Hematocrit 39.4 % (39.6-49.0); RBC Red Blood Cell Count 4.18 M/uL (4.33-5.43)
[2020-04-08] MEDS: HYDROMORPHONE HCL 1 MG/ML INJ IV PRN ×4 (06:09→22:22)
[2020-04-08] MEDS ORDERED: HYDROMORPHONE HCL 1 MG/ML INJ IV ONE (08:04)
[2020-04-08] MEDS: ENOXAPARIN 40 MG/0.4 ML SQ SCH (08:16)
[2020-04-08] MEDS: DOXYCYCLINE 100 MG CAP PO SCH ×2 (08:17→21:16)
[2020-04-08] MEDS: INSULIN GLARGINE 100 UNITS/ML SQ SCH ×2 (08:17→21:18)
[2020-04-08] MEDS: GABAPENTIN 300 MG CAP PO SCH ×2 (08:17→21:16)
[2020-04-08] MEDS: INSULIN -REGULAR HUMAN 50 UNIT/0.5 ML ML SQ SCH ×4 (08:21→21:17)
--- NOTE | 2020-04-08 08:31 | P.PN ---
Subjective Date of Service: 04/08/20 Primary Care Provider: From [place] Chief Complaint: Left digit and left hand cellulitis along with a left forearm cellulitis Subjective: Improving (Patient is improving no new complaints after dressing change she has significant monitor discomfort white count is now normal) Review of Systems Unremarkable Physical Examination - Vital Signs Temperature: 98.9 F Blood Pressure: 138/83 Pulse: 92 Respirations: 16 Pulse Ox (%): 97 - Physical Exam General: Alert, Oriented x3 Respiratory: Clear to auscultation bilaterally Cardiovascular: No edema, Regular rate/rhythm - Studies Medications List Reviewed: Yes Assessment & Plan - Problems (Diagnosis) (1) Cellulitis of left forearm Current Visit: Yes Status: Acute Plan: P patient is scheduled to have a revision done on Thursday his white count has declined vancomycin and doxycycline Mr SHEIKH isolated has some pain after the dressing continue with present therapy
[2020-04-08] MEDS: LACTULOSE 20 GM/30 ML UCUP PO PRN (17:40)
[2020-04-08] MEDS: MELATONIN 3 MG TABLET PO SCH (21:18)
[2020-04-09] MEDS: HYDROCODONE/APAP 10/325 TAB PO PRN ×4 (02:13→20:39)
[2020-04-09] MEDS: VANCOMYCIN 1.5 GM in NA CHLORIDE 0.9% 500 ML IVPB SCH ×2 (03:45→14:56)
[2020-04-09] MEDS: HYDROMORPHONE HCL 1 MG/ML INJ IV PRN ×5 (05:04→21:54)
[2020-04-09] MEDS: INSULIN -REGULAR HUMAN 50 UNIT/0.5 ML ML SQ SCH ×4 (07:39→20:40)
[2020-04-09] MEDS: INSULIN GLARGINE 100 UNITS/ML SQ SCH ×2 (07:40→20:39)
[2020-04-09] MEDS: DOXYCYCLINE 100 MG CAP PO SCH ×2 (07:41→20:38)
[2020-04-09] MEDS: ENOXAPARIN 40 MG/0.4 ML SQ SCH ×2 (07:41→07:44)
[2020-04-09] MEDS: GABAPENTIN 300 MG CAP PO SCH ×2 (07:41→20:39)
--- NOTE | 2020-04-09 09:04 | DS ---
The patient's dressing was changed. The skin bridge between the 2 incisions is friable. I doubt the skin can be pulled together. He may need skin grafting. N.p.o. at midnight. Plan debridement and closure tomorrow. AUSTIN/LINDSAY Voice ID: [id number] Report ID: [id number]
--- NOTE | 2020-04-09 17:04 | PN ---
Subjective: The patient is lying in bed. No new acute event. Denies any headache, nausea, vomiting , chest pain, abdominal pain, constipation, or diarrhea. Objective: Vital Signs: Temperature 96.9, pulse 100, respirations 17, blood pressure 123/75. Lungs: Clear to auscultation. Heart: S1, S2. Regular. Abdomen: Soft, nontender. Bowel sounds present. Extremities: No edema. Left hand in surgical dressing. Laboratory Data: WBC 8.9, hemoglobin 13.3, platelets 517. Micro data is growing MRSA from the left hand wound. The patient is currently on hydrocodone, doxycycline, vancomycin, tramadol, lactulose. Assessment And Plan: Methicillin-resistant Staphylococcus aureus infection of the left hand, status post surgical debridement. Continue antibiotic total of 2 weeks. Cellulitis of the arm is improving . Continue supportive care. Leukocytosis has improved. We will follow the patient as needed. NF/MODL Voice ID: [id number] Report ID: [id number]
[2020-04-09] MEDS: MELATONIN 3 MG TABLET PO SCH (20:39)
[2020-04-10] MEDS: VANCOMYCIN 1.5 GM in NA CHLORIDE 0.9% 500 ML IVPB SCH ×2 (03:53→14:33)
[2020-04-10] MEDS: HYDROMORPHONE HCL 1 MG/ML INJ IV PRN ×2 (03:53→20:09)
[2020-04-10] MEDS: INSULIN -REGULAR HUMAN 50 UNIT/0.5 ML ML SQ SCH ×5 (07:30→21:00)
[2020-04-10] MEDS ORDERED: NA CHLORIDE 0.9% 1,000 ML ONE ×2 (07:45→10:33)
[2020-04-10] MEDS ORDERED: MIDAZOLAM HCL 2 MG/2 ML INJ ONE (08:24)
[2020-04-10] MEDS ORDERED: ROPLVACAINE HCL 40 ML ONE (08:26)
[2020-04-10] MEDS: MINERAL OIL, LITE 10 ML VIAL ONE ×2 (08:29→09:07)
[2020-04-10] MEDS ORDERED: LIDOCAINE 2% MPF 5 ML VIAL ONE (08:33)
[2020-04-10] MEDS ORDERED: dexAMETHasone 4 MG/ML VIAL ONE ×2 (08:49→10:19)
[2020-04-10] MEDS: INSULIN GLARGINE 100 UNITS/ML SQ SCH ×2 (09:00→17:01)
[2020-04-10] MEDS ORDERED: propofoL 200 MG/20 ML VIAL IV ONE (09:28)
[2020-04-10] MEDS ORDERED: LIDOCAINE 1% MPF 5 ML VIAL ONE (09:28)
[2020-04-10] MEDS ORDERED: NS 0.9% VIAL 10 ML ONE (10:00)
[2020-04-10] MEDS ORDERED: Phenylephrine HCl 10 MG/ML 1 ML VIAL ONE (10:00)
[2020-04-10] MEDS ORDERED: Mastisol Adhesive Liq ONE (10:19)
[2020-04-10] MEDS ORDERED: ONDANSETRON 4 MG/2 ML VIAL ONE (10:19)
[2020-04-10] MEDS ORDERED: KETOROLAC 30 MG/ML INJ ONE (10:19)
[2020-04-10 10:46] VITALS: O2SAT 99
--- NOTE | 2020-04-10 11:41 | OP ---
Surgeon: Jarad Magana MD Preoperative Diagnosis: Open wounds to the left hand. Postoperative Diagnosis: Open wounds to the left hand. Procedure Performed: Debridement of skin and subcutaneous tissue, split-thickness skin graft, flap a dvancement closure of wound. Anesthesia: General. Operative Note: After satisfactory induction of general anesthesia, left arm was prepped with Betadi ne scrub, Betadine paint, dry sterile drapes were applied in the usual manner. Left leg was also pre pped anteriorly. The scalpel forceps and scissors were used to debride skin and subcu tissue as need ed and then the wound was curetted, then jet lavage irrigated with 3 L of dilute Betadine solution. Portion of the wound was closed with simple sutures of 3-0 Prolene and then skin was harvested [id number] h of an inch thick from the anterior lateral thigh. It was approximately 4 x 8 cm. The donor site w as covered with Opsite and the skin was then transferred to the hand, cut, and covered the thenar reg ion as well as the metacarpal of the middle ring area, held in place with joel, and then splint of Xeroform, foam rubber sponge, and joel placed. Dressed with a 2 inch Eddie Kerlix. The patient tolerated the procedure well and returned to recovery. AUSTIN/LINDSAY Voice ID: [id number] Report ID: [id number]
[2020-04-10] MEDS: DOXYCYCLINE 100 MG CAP PO SCH ×2 (11:55→20:07)
[2020-04-10] MEDS: GABAPENTIN 300 MG CAP PO SCH ×2 (11:56→20:07)
[2020-04-10 12:38] LABS: Absolute Lymphocytes (CBC) 0.9 K/uL (0.7-4.9); Basophils % 0.2 % (0-1.3); Hematocrit 39.5 % (39.6-49.0); Lymphocytes % 6.2 % (15.3-44.8); MPV 6.8 fL (7.6-11.3); RBC Red Blood Cell Count 4.17 M/uL (4.33-5.43)
--- NOTE | 2020-04-10 12:48 | P.PN ---
Subjective Date of Service: 04/09/20 Subjective: No new changes, No C/O voiced, Improving Patient is clinically doing better. Continue with antibiotics. Scheduled for revision tomorrow. Review of Systems 10-point ROS is otherwise unremarkable Physical Examination - Vital Signs Temperature: 97.9 F Blood Pressure: 115/73 Pulse: 83 Respirations: 16 Pulse Ox (%): 97 - Physical Exam General: Alert, In no apparent distress, Oriented x3 Respiratory: Clear to auscultation bilaterally, Normal air movement Cardiovascular: Regular rate/rhythm, Normal S1 S2, No murmurs Gastrointestinal: Normal bowel sounds, Soft and benign, Non-distended, No tenderness Musculoskeletal: Swelling, Erythema, Tenderness Integumentary: Tenderness/swelling, Erythema Neurological: Normal strength at 5/5 x4 extr, Sensation intact, Cranial nerves 3-12 intact - Studies Medications List Reviewed: Yes Assessment & Plan - Problems (Diagnosis) (1) Cellulitis of multiple sites of left hand and fingers Current Visit: Yes Status: Acute (2) Cellulitis of left forearm Current Visit: Yes Status: Acute (3) Poorly controlled diabetes mellitus Current Visit: Yes Status: Acute - Plan 1. Continue with IV antibiotic 2. Monitor blood sugars closely 3. Hand surgery consultation appreciated 4. Gentle IV hydration 5. Monitor labs closely 6. Strict blood sugar control 7. Pain control 8. GI and DVT prophylaxis Discharge Plan: Home Plan to discharge in: Greater than 2 days - Advance Directives Does patient have a Living Will: No Does patient have a Durable POA for Healthcare: No - Code Status/Comfort Care Code Status: Full Code Critical Care: No Time Spent Managing PTS Care (In Minutes): 35
[2020-04-10 12:52] LABS: BUN Blood Urea Nitrogen 20 mg/dL (7-18); Bicarbonate 27 mmol/L (21-32); Glucose Level 249 mg/dL (74-106); Potassium 4.5 mmol/L (3.5-5.1); Sodium Level 138 mmol/L (136-145)
[2020-04-10] MEDS: HYDROCODONE/APAP 10/325 TAB PO PRN (17:01)
[2020-04-10] MEDS: MELATONIN 3 MG TABLET PO SCH (20:07)
[2020-04-10] MEDS: LACTULOSE 20 GM/30 ML UCUP PO PRN (20:07)
[2020-04-10] MEDS ORDERED: hydrOXYzine HCL 25 MG TAB PO ONE (21:14)
[2020-04-11] MEDS: HYDROMORPHONE HCL 1 MG/ML INJ IV PRN (02:05)
[2020-04-11] MEDS: VANCOMYCIN 1.5 GM in NA CHLORIDE 0.9% 500 ML IVPB SCH (03:38)
[2020-04-11 04:46] VITALS: BP 114/66; TEMP 97
[2020-04-11] MEDS: INSULIN -REGULAR HUMAN 50 UNIT/0.5 ML ML SQ SCH (08:43)
[2020-04-11] MEDS: DOXYCYCLINE 100 MG CAP PO SCH (08:43)
[2020-04-11] MEDS: ENOXAPARIN 40 MG/0.4 ML SQ SCH (08:43)
[2020-04-11] MEDS: HYDROCODONE/APAP 10/325 TAB PO PRN (08:43)
[2020-04-11] MEDS: GABAPENTIN 300 MG CAP PO SCH (08:43)
[2020-04-11] MEDS: INSULIN GLARGINE 100 UNITS/ML SQ SCH (08:44)
--- NOTE | 2020-04-11 09:11 | P.PN ---
Subjective Date of Service: 04/10/20 Patient is doing well postoperatively. He was hypotensive during his surgery. A recheck his labs today. Monitor his blood pressure closely. If he continues to improve then anticipate discharge home later today or possibly in the morning. He is very sluggish and having pain. This may hold up his discharge until tomorrow morning when he is feeling better and hemodynamically he is stable as well. Review of Systems 10-point ROS is otherwise unremarkable Physical Examination - Vital Signs Temperature: 97.0 F Blood Pressure: 114/66 Pulse: 88 Respirations: 20 Pulse Ox (%): 98 - Physical Exam General: Alert, In no apparent distress, Oriented x3 Respiratory: Clear to auscultation bilaterally, Normal air movement Cardiovascular: Regular rate/rhythm, Normal S1 S2, No murmurs Gastrointestinal: Normal bowel sounds, Soft and benign, Non-distended, No tenderness Musculoskeletal: No clubbing, No swelling, No tenderness Integumentary: Other (Dressing intact; skin graft dressing intact as well) - Studies Medications List Reviewed: Yes Assessment & Plan - Problems (Diagnosis) (1) Cellulitis of multiple sites of left hand and fingers Current Visit: Yes Status: Acute (2) Cellulitis of left forearm Current Visit: Yes Status: Acute (3) Poorly controlled diabetes mellitus Current Visit: Yes Status: Acute - Plan 1. Continue with IV antibiotic 2. Monitor blood sugars closely 3. Hand surgery consultation appreciated; status post revision with skin graft placement. Monitor closely 4. Gentle IV hydration; monitor blood pressure as patient was hypotensive in the operating room 5. Monitor labs closely 6. Strict blood sugar control; at discharge patient needs to keep his blood sugars controlled so it can heal appropriately with decrease risk of infection 7. Pain control 8. GI and DVT prophylaxis Discharge Plan: Home Plan to discharge in: 24 Hours - Advance Directives Does patient have a Living Will: No Does patient have a Durable POA for Healthcare: No - Code Status/Comfort Care Code Status: Full Code Critical Care: No Time Spent Managing PTS Care (In Minutes): 35
--- NOTE | 2020-04-11 09:12 | P.DS ---
Discharge Date: 04/11/20 Primary Care Provider: From [place] Disposition: ROUTINE DISCHARGE Discharge Condition: GOOD Reason for Admission: Left digit and left hand cellulitis along with a left forearm cellulitis Consultations: Hand surgery - Problems (1) Cellulitis of multiple sites of left hand and fingers Status: Acute (2) Cellulitis of left forearm Status: Acute (3) Poorly controlled diabetes mellitus Status: Acute Brief History of Present Illness: Patient is a 54-year-old gentleman who presents to the hospital with swelling of the left hand and forearm. He said he has been having a lot of tenderness and pain. He was helping his girlfriend with making the beds at a hotel, and he believes he may have scraped his hand on the wood frame of the bed. He has also has some insect bites at [place] as the mosquitos are really bad. [place]. He also has poorly controlled diabetes. He is on Lantus twice daily and then he takes a short-acting before his meals. He has significant erythema and edema of the left fingers, hand, and forearm. He has a lot of tenderness as well. At this time, he will be admitted to the hospital for further evaluation. Spoke with hand surgery and they will see him in the morning as well. Hospital Course: Patient had surgical intervention. Initially patient had an I and D of the wound. The wound was allowed to heal but there was still a lot of swelling and they were unable to close the wound. Patient required a skin graft placement. Patient has done well postoperatively. At this time, patient is stable for discharge with outpatient followup. Vital Signs/Physical Exam: Temp Pulse Resp BP Pulse Ox 97.0 F 88 20 114/66 98 04/11/20 09:11 04/11/20 09:11 04/11/20 09:11 04/11/20 09:11 04/11/20 09:11 General: Alert, In no apparent distress, Oriented x3 Laboratory Data at Discharge: WBC 14.5 K/uL (4.3-10.9) H D 04/10/20 12:25 Hgb 13.1 g/dL (13.6-17.9) L 04/10/20 12:25 Hct 39.5 % (39.6-49.0) L 04/10/20 12:25 Plt Count 574 K/uL (152-406) H 04/10/20 12:25 Sodium 138 mmol/L (136-145) 04/10/20 12:25 Potassium 4.5 mmol/L (3.5-5.1) 04/10/20 12:25 BUN 20 mg/dL (7-18) H 04/10/20 12:25 Creatinine 0.97 mg/dL (0.55-1.3) 04/10/20 14:09 Glucose 249 mg/dL (74-106) H 04/10/20 12:25 Magnesium 2.3 mg/dL (1.8-2.4) 04/05/20 03:39 Total Bilirubin 0.3 mg/dL (0.2-1.0) 04/01/20 11:45 AST 13 U/L (15-37) L 04/01/20 11:45 ALT 22 U/L (12-78) 04/01/20 11:45 Alkaline Phosphatase 112 U/L (45-117) 04/01/20 11:45 Home Medications: Insulin Glargine,Hum.rec.anlog [Lantus Solostar] 25 units SQ BID 04/01/20 Insulin Lispro [Humalog*] 10 units SQ TID 04/01/20 Hydrocodone 10/APAP 325 [[place] 10/325*] 1 tab PO Q6HP PRN #30 tab 04/10/20 Melatonin [Melatonin*] 3 mg PO BEDTIME #20 tablet 04/10/20 Minocycline HCl 100 mg PO BID #20 capsule 04/10/20 New Medications: Melatonin [Melatonin*] 3 mg PO BEDTIME #20 tablet Minocycline HCl 100 mg PO BID #20 capsule Hydrocodone 10/APAP 325 [[place] 10/325*] 1 tab PO Q6HP PRN #30 tab PRN Reason: Pain Scale 8-10 (Severe) Patient Discharge Instructions: OK TO DC IV AND DC HOME. FOLLOW-UP WITH PRIMARY CARE PROVIDER IN 1-2 WEEKS. FOLLOW-UP WITH HIS SURGERY IN 1-2 WEEKS. RETURN TO THE ER IF SYMPTOMS WORSEN. CALL or TEXT DR. SMITH AT [phone] IF ANY QUESTIONS REGARDING HOSPITAL STAY. PLEASE CALL THE FLOOR AT [phone] IF ANY MEDICATION OR NURSING QUESTIONS. Diet: ADA Activity: Fall precautions Followup: Jarad Magana MD [ACTIVE - CAN ADMIT] - 04/16/20 9:00 am () NONE,NONE [Primary Care Provider] - Time spent managing pt's care (in minutes): 35
== END 2020-04-11 10:15 | disposition home or self-care (01) | DRG 574 ==
LOC: ER 10:49 → ERHOLD 13:18 → 2ND 14:11
PROVIDERS: ADMIT Hospitalist; ATTEND Hospitalist
PROC: 0JBK0ZZ Excision of Left Hand Subcutaneous Tissue and Fascia, Open Approach (ICD-10-PCS; 2020-04-02)
PROC: 0HDGXZZ Extraction of Left Hand Skin, External Approach (ICD-10-PCS; 2020-04-04)
PROC: 0HBJXZZ Excision of Left Upper Leg Skin, External Approach (ICD-10-PCS; 2020-04-10)
PROC: 0HRGX74 Replacement of Left Hand Skin with Autologous Tissue Substitute, Partial Thickness, External Approach (ICD-10-PCS; principal; 2020-04-10 09:00)
DX: L03.114 Cellulitis of left upper limb (principal); L02.512 Cutaneous abscess of left hand; E87.1 Hypo-osmolality and hyponatremia; E11.65 Type 2 diabetes mellitus with hyperglycemia; L02.414 Cutaneous abscess of left upper limb; I95.9 Hypotension, unspecified; B95.62 Methicillin resistant Staphylococcus aureus infection as the cause of diseases classified elsewhere; Z87.891 Personal history of nicotine dependence; Z79.4 Long term (current) use of insulin; Z79.899 Other long term (current) drug therapy; Z20.828 Contact with and (suspected) exposure to other viral communicable diseases
CPT/HCPCS: 36415; 73201; 80048; 80053; 80202; 82565; 82947; 83036; 83605; 83735; 84145; 85025; 85027; 87040; 87070; 87075; 87077; 87186; 87205; 88304; 96365; 96372; 96375; 99285; J1100; J1170; J1650; J1815; J2175; J2250; J2370; J2405; J2704; J2795; J3010; J3370; J7030; J7040; J7050; Q9967; U0002

== ENCOUNTER 2020-04-26 07:52 | Day surgery (SDC) | payer OTHER ==
[2020-04-26 08:20] LABS: Basophils % 1.1 % (0-1.3); Hematocrit 41.4 % (39.6-49.0); Lymphocytes % 36.4 % (15.3-44.8); MPV 8.4 fL (7.6-11.3); RBC Red Blood Cell Count 4.41 M/uL (4.33-5.43)
[2020-04-26 08:26] VITALS: O2SAT 100
[2020-04-26 09:06] LABS: BUN Blood Urea Nitrogen 15 mg/dL (7-18); Bicarbonate 30 mmol/L (21-32); Glucose Level 291 mg/dL (74-106); Potassium 4.2 mmol/L (3.5-5.1); Sodium Level 135 mmol/L (136-145)
[2020-04-26] MEDS ORDERED: NA CHLORIDE 0.9% 1,000 ML ONE (09:39)
[2020-04-26] MEDS ORDERED: NS 0.9% VIAL 10 ML ONE ×2 (10:14→12:51)
[2020-04-26] MEDS ORDERED: LIDOCAINE 2% MPF 5 ML VIAL ONE ×2 (10:14→11:07)
[2020-04-26] MEDS ORDERED: ROPLVACAINE HCL 40 ML ONE (10:15)
[2020-04-26] MEDS ORDERED: dexAMETHasone 4 MG/ML VIAL ONE (10:15)
[2020-04-26] MEDS ORDERED: FENTANYL CITR 100 MCG/2 ML ONE (10:15)
[2020-04-26] MEDS ORDERED: MIDAZOLAM HCL 2 MG/2 ML INJ ONE (10:15)
[2020-04-26] MEDS ORDERED: propofoL 200 MG/20 ML VIAL IV ONE ×2 (11:07→13:20)
[2020-04-26] MEDS ORDERED: CEFAZOLIN SODIUM 1 GM/VIAL ONE (12:50)
[2020-04-26] MEDS ORDERED: MINERAL OIL, LITE 10 ML VIAL ONE (12:52)
[2020-04-26] MEDS ORDERED: KETOROLAC 30 MG/ML INJ ONE (13:20)
[2020-04-26] MEDS ORDERED: Mastisol Adhesive Liq ONE (13:55)
[2020-04-26 14:05] VITALS: TEMP 97
[2020-04-26 14:14] VITALS: BP 141/88
[2020-04-26] MEDS ORDERED: CODEINE 30MG/APAP 300MG TAB ONE (14:39)
--- NOTE | 2020-04-30 11:07 | OP ---
Surgeon: Jarad Magana MD Preoperative Diagnosis: Open wounds of the left hand. Postoperative Diagnosis: Open wounds of the left hand. Procedure Performed: Debridement of skin and subcutaneous tissue flap. Anesthesia: General. Description Of Procedure: After satisfactory induction of general anesthesia, left preppe d with Betadine scrub and paint. Dry sterile drapes were applied in the usual manner. Arm was eleva flash, exsanguinated with an Esmarch, tourniquet inflated to 250 mmHg. The patient had exposed the ext ensor tendon over the thumb and over the third and fourth metacarpal. The skin grafts were debrided and then wound curetted, jet lavaged irrigated with 3 L of dilute Betadine solution. A __ medial to the thumb. The flap was elevated and then transposed, held in place with 4-0 Prol tracy simple sutures, half buried sutures. After this was done, a flap was elevated from th e ulnar aspect of the wound over the third and fourth metacarpals. We extended toward the head of th e metacarpal and the flap was rotated into position and sewn with 4-0 Prolene horizontal mattress sim ple sutures. wound requiring skin graft. Skin was harvested from left anterior lateral t high, [id number] of an inch thick. It was later covered with Opsite. The graft was then held in place with dressing of Xeroform, 4 x 4s and 1 distally and 1 radially. Then the tour niquet was released. Dressed with Xeroform and Kerlix. The patient tolerated procedure well and returned t o Recovery. GH/LINDSAY Voice ID: [id number] Report ID: [id number]
== END 2020-04-26 15:05 | disposition home or self-care (01) ==
LOC: OR 07:52
PROVIDERS: ATTEND Specialist
PROC: 0HBJXZZ Excision of Left Upper Leg Skin, External Approach (ICD-10-PCS; 2020-04-26)
PROC: 0HRGX74 Replacement of Left Hand Skin with Autologous Tissue Substitute, Partial Thickness, External Approach (ICD-10-PCS; principal; 2020-04-26 12:00)
DX: S61.402A Unspecified open wound of left hand, initial encounter (principal); Z20.828 Contact with and (suspected) exposure to other viral communicable diseases
CPT/HCPCS: 85025; 80048; 36415; 82947; 15004; U0002; J2704 ×2; J1100; J2250; J3010; J2795; J7030; J0690

== ENCOUNTER → 2020-07-15 | Emergency (ER) | payer OTHER | LOC: ER 10:51 | DX: Z02.9 Encounter for administrative examinations, unspecified (principal) ==